=== PATIENT | male | born 1960 ===

== ENCOUNTER 2023-05-04 22:52 | Emergency (ER) | payer OTHER ==
[~2023-05-04] VITALS: Ht 165.1 cm; Wt 59.0 kg
[2023-05-05] MEDS ORDERED: CEPHALEXIN500 M1 PO (01:52)
== END 2023-05-05 02:17 | disposition home or self-care (01) ==
LOC: ED 22:52
DX: S01.111A Laceration without foreign body of right eyelid and periocular area, initial encounter (principal); W55.12XA Struck by horse, initial encounter; Y93.89 Activity, other specified; Y92.89 Other specified places as the place of occurrence of the external cause; Y99.8 Other external cause status

== ENCOUNTER 2023-05-09 15:16 | Emergency (ER) | payer OTHER ==
[~2023-05-09] VITALS: Ht 154.9 cm; Wt 56.7 kg
[~2023-05-09 15:16] MED LIST: CEPHALEXIN500 M1 PO
== END 2023-05-09 16:33 | disposition home or self-care (01) ==
LOC: ED 15:16
DX: S01.81XD Laceration without foreign body of other part of head, subsequent encounter (principal); I10 Essential (primary) hypertension; X58.XXXD Exposure to other specified factors, subsequent encounter

== ENCOUNTER 2023-09-05 10:54 | Emergency (ER) | payer OTHER ==
[~2023-09-05] VITALS: Ht 165.1 cm; Wt 53.5 kg
[2023-09-05 11:56] LABS: BASO % 0.2 % (0.0-1.0); EOS # 0.1 10*3/uL (0.0-0.4); EOS % 2.5 % (1.0-4.0); HEMATOCRIT 44.4 % (42.0-52.0); LYMPH # 1.8 10*3/uL (1.3-4.4); LYMPH % 33.9 % (27.0-41.0); MEAN CELL VOLUME 89.3 fl (80.0-94.0); MEAN CORPUSCULAR HGB 29.4 pg (27.0-31.0); MEAN CORPUSCULAR HGB CONC 32.9 g/dl (33.0-37.0); MEAN PLATELET VOLUME 8.8 fl (9.6-12.3); MONO # 0.4 10*3/uL (0.1-1.0); MONO % 7.9 % (3.0-9.0); NEUT # 2.9 10*3/uL (2.3-7.9); NEUT % 55.3 % (47.0-73.0); PLATELET COUNT AUTOMATED 280 10*3/uL (130-400); RED BLOOD COUNT 4.97 10*6/uL (4.50-5.90); RED CELL DISTRI WIDTH 13.1 % (0-14.5); WHITE BLOOD COUNT 5.2 10*3/uL (4.8-10.8)
[2023-09-05 12:09] LABS: ACT PARTIAL THROMBO TIME 27.8 SECONDS (20.0-32.1)
[2023-09-05 12:19] LABS: ALKALINE PHOSPHATASE 71 U/L (46-116); BUN 13 mg/dl (9-23); CHLORIDE 104 mmol/L (98-107); LIPASE 36 U/L (12-53); POTASSIUM 3.7 mmol/L (3.4-5.1); SGPT/ALT 21 U/L (5-49); TOTAL PROTEIN 6.7 gm/dL (6.0-8.0)
== END 2023-09-05 16:22 | disposition home or self-care (01) ==
LOC: ED 10:54
PROVIDERS: Emergency Medicine
DX: Z00.00 Encounter for general adult medical examination without abnormal findings (principal); R10.2 Pelvic and perineal pain

== ENCOUNTER 2024-06-07 16:24 | Emergency (ER) | payer OTHER ==
[~2024-06-07] VITALS: Ht 165.1 cm; Wt 81.6 kg
[2024-06-07] MEDS ORDERED: Ketorolac Tromethamine 30 MG/ML VIAL IM ONE (17:25)
[2024-06-07 17:44] LABS: BILIRUBIN Negative (Negative); BLOOD Negative (Negative); CLARITY Clear (Clear); COLOR Yellow (Yellow); GLUCOSE Negative (Negative); KETONE Trace (Negative); LEUKO ESTERASE Negative (Negative); NITRITE Negative (Negative); PH 6.5 (4.5-8.0); SPECIFIC GRAVITY >= 1.030 (1.001-1.030)
[2024-06-07 17:54] LABS: EPITHELIAL CELLS 0-2; WBC 0-2 wbc/hpf (0-5)
[2024-06-07] MEDS ORDERED: CYCLOBENZAPRINE10 MG PO (18:36)
[2024-06-07] MEDS ORDERED: Motrin,Rufen800 MG PO (18:36)
== END 2024-06-07 19:15 | disposition home or self-care (01) ==
LOC: ED 16:24
PROVIDERS: Emergency Medicine
DX: S32.028A Other fracture of second lumbar vertebra, initial encounter for closed fracture (principal); S93.401A Sprain of unspecified ligament of right ankle, initial encounter; V80.010A Animal-rider injured by fall from or being thrown from horse in noncollision accident, initial encounter; Y93.52 Activity, horseback riding; Y92.39 Other specified sports and athletic area as the place of occurrence of the external cause; Y99.8 Other external cause status

== ENCOUNTER 2024-08-06 11:14 | Emergency (ER) | payer OTHER ==
[~2024-08-06] VITALS: Ht 165.1 cm; Wt 55.3 kg
[~2024-08-06 11:14] MED LIST changes: +CYCLOBENZAPRINE10 MG PO; +Motrin,Rufen800 MG PO
== END 2024-08-06 12:16 | disposition home or self-care (01) ==
LOC: ED 11:14
DX: M54.50 Low back pain, unspecified (principal)

== ENCOUNTER 2024-10-21 16:11 | Emergency (ER) | payer OTHER | END 2024-10-21 16:47 | disposition home or self-care (01) | LOC: ED 16:11 | DX: Z02.79 Encounter for issue of other medical certificate (principal) ==